=== PATIENT | female | born 1990 | race Caucasian/White ===

== ENCOUNTER 2017-04-03 19:18 | Emergency (ER) | payer OTHER ==
[2017-04-03 22:06] VITALS: BP 190/135
== END 2017-04-03 22:06 | disposition left against medical advice (07) ==
LOC: ED 19:18
DX: N61.0 Mastitis without abscess (principal); I10 Essential (primary) hypertension; E66.01 Morbid (severe) obesity due to excess calories; Z79.899 Other long term (current) drug therapy

== ENCOUNTER 2017-07-22 01:20 | Emergency (ER) | payer OTHER | END 2017-07-22 02:15 | disposition other institution (70) | LOC: ED 01:20 | DX: Z02.89 Encounter for other administrative examinations (principal) ==

== ENCOUNTER 2017-07-22 01:20 | Emergency (ER) | payer OTHER ==
[~2017-07-22] VITALS: Ht 167.6 cm; Wt 90.7 kg
[2017-07-22 02:15] VITALS: BP 116/68
== END 2017-07-22 02:15 | disposition other institution (70) ==
LOC: ED 01:20
DX: I10 Essential (primary) hypertension (principal)

== ENCOUNTER 2018-06-11 17:33 | Emergency (ER) | payer MEDICAID ==
[2018-06-11 20:41] VITALS: BP 179/88
== END 2018-06-11 20:35 | disposition home or self-care (01) ==
LOC: ED 17:33
DX: L02.411 Cutaneous abscess of right axilla (principal); I10 Essential (primary) hypertension
CPT/HCPCS: J1885; J2001

== ENCOUNTER 2018-09-18 12:20 | Emergency (ER) | payer MEDICAID ==
[~2018-09-18] VITALS: Ht 165.1 cm; Wt 98.9 kg
[2018-09-18 12:31] VITALS: Ht 165.1 cm; Wt 98.9 kg
[2018-09-18 14:23] VITALS: BP 198/117
== END 2018-09-18 14:23 | disposition home or self-care (01) ==
LOC: ED 12:20
DX: J02.0 Streptococcal pharyngitis (principal); I10 Essential (primary) hypertension; Z98.890 Other specified postprocedural states
CPT/HCPCS: J0561; J1885

== ENCOUNTER 2018-10-16 08:20 | Emergency (ER) | payer OTHER ==
[~2018-10-16] VITALS: Ht 167.6 cm; Wt 100.2 kg
[2018-10-16 08:34] VITALS: Ht 167.6 cm; Wt 100.2 kg
[2018-10-16 09:11] LABS: BASOPHIL % 0.6 % (0-2); PLATELET COUNT 324 x10^3mcL (130-400); RED CELL DISTRIBUTION WIDTH 12.6 % (11.5-14.5)
[2018-10-16 09:18] LABS: CALCIUM 8.7 mg/dL (8.5-10.1); CARBON DIOXIDE 24.5 mmol/L (21-32); CHLORIDE SERUM 105 mmol/L (98-107); CREATININE SERUM 0.7 mg/dL (0.6-1.0); GFR1 > 60 mL/min; GLUCOSE SERUM 104 mg/dL (74-106); POTASSIUM SERUM 3.8 mmol/L (3.5-5.1); SODIUM SERUM 137 mmol/L (136-145)
[2018-10-16 09:20] LABS: ALBUMIN 3.6 g/dL (3.4-5.0); ALKALINE PHOSPHATASE 51 U/L (46-116); ALT/SGPT 117 U/L (14-59); AST/SGOT 61 U/L (15-37); BILIRUBIN TOTAL 0.5 mg/dL (0.20-1.00); TOTAL PROTEIN, SERUM 7.8 g/dL (6.4-8.2)
[2018-10-16 10:12] LABS: microscopic required? NO
[2018-10-16 10:31] LABS: UA SPECIFIC GRAVITY 1.015 (1.005-1.035); urine erythrocyte NEGATIVE (NEGATIVE)
[2018-10-16 11:08] VITALS: BP 180/133
== END 2018-10-16 11:08 | disposition home or self-care (01) ==
LOC: ED 08:20
PROVIDERS: Emergency Medicine
DX: J40 Bronchitis, not specified as acute or chronic (principal); I10 Essential (primary) hypertension
CPT/HCPCS: 36415; J7030; J7613; J7644; Q0092

== ENCOUNTER 2019-07-20 14:45 | Emergency (ER) | payer OTHER ==
[~2019-07-20] VITALS: Ht 167.6 cm; Wt 98.9 kg
[2019-07-20 15:01] VITALS: Ht 167.6 cm; Wt 98.9 kg
[2019-07-20 18:46] VITALS: BP 148/82
== END 2019-07-20 18:46 | disposition home or self-care (01) ==
LOC: ED 14:45
DX: R05 Cough (principal); R51 Headache; I10 Essential (primary) hypertension; F17.210 Nicotine dependence, cigarettes, uncomplicated
CPT/HCPCS: 99406

== ENCOUNTER 2019-10-22 08:05 | Emergency (ER) | payer OTHER ==
[~2019-10-22] VITALS: Ht 167.6 cm; Wt 100.7 kg
[2019-10-22 08:13] VITALS: Ht 167.6 cm; Wt 100.7 kg
[2019-10-22 11:12] VITALS: BP 136/56
== END 2019-10-22 11:12 | disposition home or self-care (01) ==
LOC: ED 08:05
DX: R51 Headache (principal); I10 Essential (primary) hypertension